=== PATIENT | male | born 1990 | race American Indian/Alaskan Native ===

== ENCOUNTER 2017-12-05 21:07 | Emergency (ER) | payer OTHER ==
[2017-12-05] MEDS ORDERED: Cyclobenzaprine 10 MG Tab PO ONE (21:55)
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
[2017-12-05 22:08] LABS: ANION GAP 12.9; CHLORIDE,CL 106 mmol/L (101-111); SODIUM,NA 141 mmol/L (135-145)
[2017-12-05] MEDS ORDERED: Ketorolac 30 MG/ML SDV IVPUSH ONE (23:06)
== END 2017-12-05 23:18 | disposition home or self-care (01) ==
LOC: DL.ED 21:07
DX: S20.229A Contusion of unspecified back wall of thorax, initial encounter (principal); V86.56XA Driver of dirt bike or motor/cross bike injured in nontraffic accident, initial encounter
CPT/HCPCS: 36415; 71045; 72070; 80053; 80305; 81001; 85025; 96374; 99284; A9270; G0480; J1885